=== PATIENT | male | born 1960 | race African-American/Black ===

== ENCOUNTER 2016-11-04 20:08 | Emergency (ER) | payer OTHER ==
[~2016-11-04] VITALS: Ht 175.3 cm; Wt 100.0 kg
[~2016-11-04 20:08] MED LIST: FURO-152 PO; GABA-531 PO; IBUP-1547 PO
[2016-11-04] MEDS ORDERED: IBUP-1547 PO (20:18)
[2016-11-04] MEDS ORDERED: GABA-533 PO (20:18)
[2016-11-04 20:52] VITALS: BP 142/89
== END 2016-11-04 21:17 | disposition home or self-care (01) ==
LOC: EMS 20:08
DX: R03.0 Elevated blood-pressure reading, without diagnosis of hypertension (principal)
CPT/HCPCS: 99281

== ENCOUNTER 2016-11-11 06:40 | Emergency (ER) | payer OTHER ==
[~2016-11-11] VITALS: Ht 180.3 cm; Wt 118.0 kg
[~2016-11-11 06:40] MED LIST changes: -FURO-152 PO; -GABA-531 PO; +GABA-533 PO
[2016-11-11 07:23] LABS: BASOPHILS # (AUTO) 0.05 K/uL (0.00-0.20); BASOPHILS % (AUTO) 0.9 % (0.0-2.0); EOSINOPHILS # (AUTO) 0.16 K/uL (0.00-0.70); EOSINOPHILS % (AUTO) 2.76 % (1.0-6.0); HEMATOCRIT 43.1 % (41-53); HEMOGLOBIN 14.2 g/dL (13.5-17.5); LYMPHOCYTES # (AUTO) 1.7 K/uL (1.0-4.8); LYMPHOCYTES % (AUTO) 28.9 % (22.0-44.0); MEAN CORPUSCULAR HEMOGLOBIN 28.5 pg (26.0-34.0); MEAN CORPUSCULAR HGB CONC 32.9 G/dL (31.0-37.0); MEAN CORPUSCULAR VOLUME 86 fL (80-100); MONOCYTES # (AUTO) 0.4 K/uL (0.1-1.0); MONOCYTES % (AUTO) 6.5 % (2.0-9.0); NEUTROPHILS # (AUTO) 3.5 K/uL (1.8-7.7); NEUTROPHILS % (AUTO) 60.9 % (40.0-70.0); PLATELET COUNT (AUTO) 339 K/uL (150-450); RED BLOOD CELL COUNT(AUTO) 4.99 MIL/uL (4.50-5.90); RED CELL DISTRIBUTION WIDTH 13.5 % (11.5-14.5); WHITE BLOOD COUNT (AUTO) 5.8 K/uL (4.5-11.0)
[2016-11-11 07:27] LABS: RBC MORPHOLOGY COMMENT NORMAL RBC MORPH
[2016-11-11 07:35] LABS: PROTHROMBIN TIME 10.7 SEC (9.4-11.6)
[2016-11-11 07:50] LABS: B-TYPE NATRIURETIC PEPTIDE 71 pg/mL (0-100)
[2016-11-11 08:03] LABS: ALANINE AMINOTRANSFERASE 17 U/L (12-78); ALBUMIN 3.6 g/dL (3.4-5.0); ANION GAP 9 mmol/L (8-16); ASPARTATE AMINOTRANSFERASE 10 U/L (15-37); BILIRUBIN,TOTAL 0.8 mg/dL (0.1-1.0); CALCIUM, TOTAL 9.2 mg/dL (8.8-10.5); CARBON DIOXIDE 29 mmol/L (22-29); CHLORIDE 107 mmol/L (98-107); CREATINE KINASE MB 1.7 ng/mL (0-5); CREATINE KINASE, TOTAL 172 U/L (39-308); GLOMERULAR FILTR. RATE CALC > 60 mL/min (>60); SODIUM SERUM 145 mmol/L (136-145); TOTAL PROTEIN, SERUM 7.4 g/dL (6.4-8.2); UREA NITROGEN, BLOOD 15 mg/dL (7-18)
[2016-11-11 08:07] LABS: POTASSIUM 2.9 mmol/L (3.5-5.1)
[2016-11-11] MEDS ORDERED: POTASSIUM CHL 10 MEQ/WATER 50 ML IV SCH (08:15)
[2016-11-11] MEDS ORDERED: SODIUM CHLORIDE 0.9% 500 ML IV ONE (08:18)
[2016-11-11] MEDS ORDERED: POTASSIUM CHLORIDE 20 MEQ ER TABLET PO ONE (09:15)
[2016-11-11 09:59] VITALS: BP 166/98
== END 2016-11-11 10:14 | disposition home or self-care (01) ==
LOC: EMS 06:42
DX: R60.0 Localized edema (principal)
CPT/HCPCS: 36415; 71010; 80053; 82550; 82553; 83880; 84484; 85025; 85610; 85730; 93005; 96360; 99285; J3480; J7040

== ENCOUNTER 2016-12-06 22:29 | Emergency (ER) | payer OTHER ==
[~2016-12-06] VITALS: Ht 180.3 cm; Wt 113.6 kg
[~2016-12-06 22:29] MED LIST changes: -IBUP-1547 PO; +IBUP-2071 PO
[2016-12-07 00:04] VITALS: BP 138/87
== END 2016-12-07 00:05 | disposition home or self-care (01) ==
LOC: EMS 22:30
DX: F41.9 Anxiety disorder, unspecified (principal); R03.0 Elevated blood-pressure reading, without diagnosis of hypertension; M54.30 Sciatica, unspecified side
CPT/HCPCS: 99284

== ENCOUNTER 2017-02-05 22:58 | Emergency (ER) | payer OTHER ==
[~2017-02-05] VITALS: Ht 177.8 cm; Wt 113.6 kg
[2017-02-06 01:12] VITALS: BP 123/89
== END 2017-02-06 01:27 | disposition left against medical advice (07) ==
LOC: EMS 23:00
DX: Z01.30 Encounter for examination of blood pressure without abnormal findings (principal); Z53.21 Procedure and treatment not carried out due to patient leaving prior to being seen by health care provider

== ENCOUNTER 2017-02-09 19:45 | Emergency (ER) | payer OTHER ==
[~2017-02-09] VITALS: Ht 180.3 cm; Wt 111.4 kg
[2017-02-09 19:57] VITALS: BP 135/98
== END 2017-02-09 21:45 | disposition home or self-care (01) ==
LOC: EMS 19:46
DX: I10 Essential (primary) hypertension (principal)
CPT/HCPCS: 99281

== ENCOUNTER 2017-02-23 16:53 | Emergency (ER) | payer OTHER ==
[~2017-02-23] VITALS: Ht 180.3 cm; Wt 79.5 kg
[2017-02-23 16:54] VITALS: BP 168/95
[2017-02-23] MEDS ORDERED: POVIDONE-IODINE 10% 15 ML SOLUTION UD TP ONE (18:30)
[2017-02-23] MEDS ORDERED: BACITRACIN 0.9 GM PACKET OINTMENT TP ONE (18:30)
== END 2017-02-23 18:52 | disposition home or self-care (01) ==
LOC: EMS 16:55
DX: S61.411A Laceration without foreign body of right hand, initial encounter (principal); W25.XXXA Contact with sharp glass, initial encounter; Y93.89 Activity, other specified; Y92.89 Other specified places as the place of occurrence of the external cause; Y99.8 Other external cause status
CPT/HCPCS: 99283

== ENCOUNTER 2017-02-27 07:17 | Emergency (ER) | payer OTHER ==
[~2017-02-27] VITALS: Ht 180.3 cm; Wt 112.3 kg
[2017-02-27 07:22] VITALS: BP 176/109
== END 2017-02-27 08:23 | disposition left against medical advice (07) ==
LOC: EMS 07:18
DX: I10 Essential (primary) hypertension (principal); Z53.21 Procedure and treatment not carried out due to patient leaving prior to being seen by health care provider

== ENCOUNTER 2017-03-03 01:25 | Emergency (ER) | payer OTHER ==
[~2017-03-03] VITALS: Ht 180.3 cm; Wt 112.3 kg
[2017-03-03 01:55] VITALS: BP 155/90
== END 2017-03-03 02:13 | disposition home or self-care (01) ==
LOC: EMS 01:26
DX: I10 Essential (primary) hypertension (principal)
CPT/HCPCS: 99281

== ENCOUNTER 2017-03-04 19:43 | Emergency (ER) | payer OTHER ==
[~2017-03-04] VITALS: Ht 172.7 cm; Wt 90.5 kg
[2017-03-04 21:53] VITALS: BP 132/64
== END 2017-03-04 21:55 | disposition home or self-care (01) ==
LOC: EMS 19:45
DX: M25.561 Pain in right knee (principal); M25.562 Pain in left knee; G89.29 Other chronic pain; I10 Essential (primary) hypertension
CPT/HCPCS: 99281

== ENCOUNTER 2017-04-09 00:18 | Emergency (ER) | payer OTHER ==
[~2017-04-09] VITALS: Ht 180.3 cm; Wt 112.3 kg
[2017-04-09 00:20] VITALS: BP 164/93
== END 2017-04-09 02:30 | disposition left against medical advice (07) ==
LOC: EMS 00:19
DX: M79.604 Pain in right leg (principal); M79.605 Pain in left leg; I10 Essential (primary) hypertension; Z53.21 Procedure and treatment not carried out due to patient leaving prior to being seen by health care provider

== ENCOUNTER 2017-05-08 22:10 | Emergency (ER) | payer OTHER ==
[~2017-05-08] VITALS: Ht 180.3 cm; Wt 110.0 kg
[2017-05-09 04:15] VITALS: BP 139/88
== END 2017-05-09 04:18 | disposition home or self-care (01) ==
LOC: EMS 22:23
DX: K40.90 Unilateral inguinal hernia, without obstruction or gangrene, not specified as recurrent (principal); I10 Essential (primary) hypertension
CPT/HCPCS: 99283

== ENCOUNTER 2017-05-16 23:25 | Emergency (ER) | payer OTHER ==
[~2017-05-16] VITALS: Ht 180.3 cm; Wt 112.3 kg
[2017-05-17 00:01] LABS: BASOPHILS % (AUTO) 1.2 % (0.0-2.0); HEMATOCRIT 36.3 % (41-53); LYMPHOCYTES # (AUTO) 1.9 K/uL (1.0-4.8); LYMPHOCYTES % (AUTO) 29.1 % (22.0-44.0); MEAN CORPUSCULAR HEMOGLOBIN 28.1 pg (26.0-34.0); MEAN CORPUSCULAR VOLUME 85 fL (80-100); MONOCYTES # (AUTO) 0.7 K/uL (0.1-1.0); MONOCYTES % (AUTO) 10.6 % (2.0-9.0); NEUTROPHILS # (AUTO) 3.6 K/uL (1.8-7.7); NEUTROPHILS % (AUTO) 55.1 % (40.0-70.0); PLATELET COUNT (AUTO) 337 K/uL (150-450); RED BLOOD CELL COUNT(AUTO) 4.27 MIL/uL (4.50-5.90); RED CELL DISTRIBUTION WIDTH 13.2 % (11.5-14.5)
[2017-05-17 00:10] LABS: CALCIUM, TOTAL 8.9 mg/dL (8.8-10.5); CREATININE 1.6 mg/dL (0.60-1.30); POTASSIUM 3.3 mmol/L (3.5-5.1)
[2017-05-17 00:15] LABS: ALBUMIN 3.4 g/dL (3.4-5.0); BILIRUBIN,TOTAL 0.3 mg/dL (0.1-1.0); TOTAL PROTEIN, SERUM 6.9 g/dL (6.4-8.2)
[2017-05-17 00:58] VITALS: BP 155/87
[2017-05-17] MEDS: MAG HYDROX/AL HYDROX/SIMETH ES 30 ML SUSPENSION UDCUP PO ONE (01:01)
[2017-05-17] MEDS: POTASSIUM CHLORIDE 10% 40 MEQ/30 ML LIQUID UDCUP PO ONE (01:01)
== END 2017-05-17 01:07 | disposition home or self-care (01) ==
LOC: EMS 23:27
DX: K29.70 Gastritis, unspecified, without bleeding (principal); E87.6 Hypokalemia; R10.84 Generalized abdominal pain; I10 Essential (primary) hypertension; Z59.0 Homelessness
CPT/HCPCS: 93005; 99285

== ENCOUNTER 2017-05-18 05:27 | Emergency (ER) | payer OTHER ==
[~2017-05-18] VITALS: Ht 180.3 cm; Wt 110.0 kg
[2017-05-18 06:01] VITALS: BP 132/81
== END 2017-05-18 06:25 | disposition home or self-care (01) ==
LOC: EMS 05:28
DX: M54.30 Sciatica, unspecified side (principal); Z59.0 Homelessness
CPT/HCPCS: 99281

== ENCOUNTER 2017-06-07 00:21 | Emergency (ER) | payer OTHER ==
[~2017-06-07] VITALS: Ht 180.3 cm; Wt 112.3 kg
[2017-06-07 02:33] VITALS: BP 150/70
== END 2017-06-07 02:35 | disposition home or self-care (01) ==
LOC: EMS 00:21
DX: M54.5 Low back pain (principal); M79.605 Pain in left leg; M79.604 Pain in right leg; G89.29 Other chronic pain; I10 Essential (primary) hypertension; Z59.0 Homelessness
CPT/HCPCS: 99283

== ENCOUNTER 2017-08-16 17:21 | Emergency (ER) | payer OTHER ==
[~2017-08-16] VITALS: Ht 180.3 cm; Wt 105.5 kg
[2017-08-16 17:31] VITALS: BP 151/101
[2017-08-16 18:29] LABS: EOSINOPHILS % (AUTO) 4.2 % (1.0-6.0); HEMATOCRIT 37.6 % (41-53); HEMOGLOBIN 12.5 g/dL (13.5-17.5); LYMPHOCYTES # (AUTO) 1.7 K/uL (1.0-4.8); LYMPHOCYTES % (AUTO) 27.1 % (22.0-44.0); MEAN CORPUSCULAR HEMOGLOBIN 28.5 pg (26.0-34.0); MEAN CORPUSCULAR HGB CONC 33.2 G/dL (31.0-37.0); MEAN CORPUSCULAR VOLUME 86 fL (80-100); MONOCYTES # (AUTO) 0.7 K/uL (0.1-1.0); MONOCYTES % (AUTO) 11.1 % (2.0-9.0); NEUTROPHILS # (AUTO) 3.5 K/uL (1.8-7.7); NEUTROPHILS % (AUTO) 56.6 % (40.0-70.0); PLATELET COUNT (AUTO) 376 K/uL (150-450); RED BLOOD CELL COUNT(AUTO) 4.37 MIL/uL (4.50-5.90); RED CELL DISTRIBUTION WIDTH 13.5 % (11.5-14.5)
[2017-08-16 18:38] LABS: ANION GAP 7 mmol/L (8-16); CALCIUM, TOTAL 8.6 mg/dL (8.8-10.5); CARBON DIOXIDE 29 mmol/L (22-29); CHLORIDE 109 mmol/L (98-107); CREATININE 1.25 mg/dL (0.60-1.30); GLOMERULAR FILTR. RATE CALC > 60 mL/min (>60); GLUCOSE,RANDOM 113 mg/dL (70-110); POTASSIUM 3.7 mmol/L (3.5-5.1); SODIUM SERUM 145 mmol/L (136-145); UREA NITROGEN, BLOOD 17 mg/dL (7-18)
[2017-08-16 18:46] LABS: ALANINE AMINOTRANSFERASE 26 U/L (12-78); ALBUMIN 3.3 g/dL (3.4-5.0); ALKALINE PHOSPHATASE 82 U/L (46-116); ASPARTATE AMINOTRANSFERASE 15 U/L (15-37); BILIRUBIN,TOTAL 0.3 mg/dL (0.1-1.0); LIPASE 91 U/L (73-393); TOTAL PROTEIN, SERUM 7.3 g/dL (6.4-8.2)
== END 2017-08-16 19:45 | disposition left against medical advice (07) ==
LOC: EMS 17:22
DX: R10.32 Left lower quadrant pain (principal); R10.31 Right lower quadrant pain; I10 Essential (primary) hypertension; Z53.21 Procedure and treatment not carried out due to patient leaving prior to being seen by health care provider

== ENCOUNTER 2017-08-16 23:34 | Emergency (ER) | payer OTHER ==
[~2017-08-16] VITALS: Ht 180.3 cm; Wt 105.5 kg
[2017-08-17 02:04] VITALS: BP 143/88
== END 2017-08-17 02:54 | disposition home or self-care (01) ==
LOC: EMS 23:34
DX: R10.32 Left lower quadrant pain (principal); I10 Essential (primary) hypertension
CPT/HCPCS: 74022; 99283

== ENCOUNTER 2017-09-17 03:32 | Emergency (ER) | payer OTHER ==
[~2017-09-17] VITALS: Ht 180.3 cm; Wt 222.0 kg
[2017-09-17 04:16] VITALS: BP 164/108
== END 2017-09-17 04:24 | disposition home or self-care (01) ==
LOC: EMS 03:33
DX: M54.30 Sciatica, unspecified side (principal); Z76.0 Encounter for issue of repeat prescription; I10 Essential (primary) hypertension; Z98.890 Other specified postprocedural states; Z79.899 Other long term (current) drug therapy
CPT/HCPCS: 99283

== ENCOUNTER 2017-09-26 01:15 | Emergency (ER) | payer OTHER ==
[~2017-09-26] VITALS: Ht 180.3 cm; Wt 105.5 kg
[2017-09-26] MEDS ORDERED: GABAPENTIN 300 MG CAPSULE PO ONE (04:00)
[2017-09-26 04:22] VITALS: BP 157/92
== END 2017-09-26 04:41 | disposition home or self-care (01) ==
LOC: EMS 01:16
DX: M54.30 Sciatica, unspecified side (principal); M79.605 Pain in left leg; I10 Essential (primary) hypertension; F12.10 Cannabis abuse, uncomplicated; Z79.899 Other long term (current) drug therapy
CPT/HCPCS: 99283

== ENCOUNTER 2017-10-24 20:18 | Emergency (ER) | payer OTHER ==
[~2017-10-24] VITALS: Ht 180.3 cm; Wt 105.5 kg
[2017-10-24 22:46] VITALS: BP 149/89
== END 2017-10-24 23:08 | disposition home or self-care (01) ==
LOC: EMS 20:19
DX: S90.821A Blister (nonthermal), right foot, initial encounter (principal); I10 Essential (primary) hypertension; F12.90 Cannabis use, unspecified, uncomplicated; Z79.899 Other long term (current) drug therapy; X58.XXXA Exposure to other specified factors, initial encounter; Y93.01 Activity, walking, marching and hiking; Y92.89 Other specified places as the place of occurrence of the external cause; Y99.8 Other external cause status
CPT/HCPCS: 99282; 99283

== ENCOUNTER 2017-10-26 17:57 | Emergency (ER) | payer OTHER ==
[~2017-10-26] VITALS: Ht 180.3 cm; Wt 105.5 kg
[2017-10-26 19:33] VITALS: BP 157/100
== END 2017-10-26 20:14 | disposition home or self-care (01) ==
LOC: EMS 17:58
DX: G89.29 Other chronic pain (principal); I10 Essential (primary) hypertension; M54.30 Sciatica, unspecified side; F12.90 Cannabis use, unspecified, uncomplicated; Z59.0 Homelessness; Z79.899 Other long term (current) drug therapy
CPT/HCPCS: 99281

== ENCOUNTER 2017-11-01 02:07 | Emergency (ER) | payer OTHER ==
[~2017-11-01] VITALS: Ht 180.3 cm; Wt 105.5 kg
[2017-11-01] MEDS ORDERED: KETOROLAC TROMETHAMINE 60 MG/2 ML VIAL IM ONE (03:45)
[2017-11-01] MEDS ORDERED: TraMADol HCL 50 MG TABLET PO ONE (03:45)
[2017-11-01 03:55] VITALS: BP 155/88
== END 2017-11-01 04:52 | disposition home or self-care (01) ==
LOC: EMS 02:07
DX: M79.604 Pain in right leg (principal); M79.605 Pain in left leg; G89.29 Other chronic pain; I10 Essential (primary) hypertension; F12.90 Cannabis use, unspecified, uncomplicated
CPT/HCPCS: 96372; 99283; J1885

== ENCOUNTER 2018-01-03 01:30 | Emergency (ER) | payer OTHER ==
[~2018-01-03] VITALS: Ht 180.3 cm; Wt 105.0 kg
[2018-01-03] MEDS: KETOROLAC TROMETHAMINE 60 MG/2 ML VIAL IM ONE (03:19)
[2018-01-03 03:30] VITALS: BP 137/74
== END 2018-01-03 03:30 | disposition home or self-care (01) ==
LOC: EMS 01:30
DX: M54.41 Lumbago with sciatica, right side (principal); M54.42 Lumbago with sciatica, left side; G89.29 Other chronic pain; I10 Essential (primary) hypertension; F12.90 Cannabis use, unspecified, uncomplicated
CPT/HCPCS: 96372; 99283; J1885

== ENCOUNTER 2018-01-17 21:19 | Emergency (ER) | payer OTHER ==
[~2018-01-17] VITALS: Ht 180.3 cm; Wt 105.5 kg
[2018-01-17 22:09] VITALS: BP 133/90
[2018-01-17] MEDS ORDERED: KETOROLAC TROMETHAMINE 30 MG/ML VIAL IM ONE (22:15)
== END 2018-01-17 22:37 | disposition home or self-care (01) ==
LOC: EMS 21:21
DX: M54.16 Radiculopathy, lumbar region (principal); G89.29 Other chronic pain; I10 Essential (primary) hypertension; F12.90 Cannabis use, unspecified, uncomplicated
CPT/HCPCS: 96372; 99283; J1885

== ENCOUNTER 2018-01-30 22:09 | Emergency (ER) | payer OTHER ==
[~2018-01-30] VITALS: Ht 180.3 cm; Wt 105.5 kg
[2018-01-31] MEDS: KETOROLAC TROMETHAMINE 30 MG/ML VIAL IM ONE (00:52)
[2018-01-31] MEDS: METOCLOPRAMIDE HCL 5 MG/ML 2 ML VIAL IM ONE (00:52)
[2018-01-31] MEDS: DiphenhydrAMINE HCL 50 MG/ML VIAL IM ONE (00:52)
[2018-01-31 01:59] VITALS: BP 137/84
== END 2018-01-31 02:13 | disposition home or self-care (01) ==
LOC: EMS 22:10
DX: R51 Headache (principal); M54.5 Low back pain; G89.29 Other chronic pain; I10 Essential (primary) hypertension; F12.90 Cannabis use, unspecified, uncomplicated
CPT/HCPCS: 96372; 99284; J1200; J1885; J2765